=== PATIENT | male | born 1985 | race Caucasian/White ===

== ENCOUNTER 2020-10-24 19:48 | Emergency (ER) | payer MEDICAID ==
[~2020-10-24] VITALS: Ht 190.5 cm; Wt 68.2 kg
[~2020-10-24 19:48] MED LIST: NO HOME MEDS
[2020-10-24] MEDS ORDERED: TETanus/Pertussis (Acell)/Diphther VAC/PF (Tdap-Adult) 0.5ml syringe IMVAC ONE (20:10)
[2020-10-24] MEDS ORDERED: LIDOcaine 1% W/epiNEPHrine 1:200,000 10ml vial IJ ONE (20:10)
[2020-10-24] MEDS ORDERED: LIDOcaine 1% w/epiNEPHrine 1:200,000 30ml vial IJ ONE (20:15)
[2020-10-24 21:02] VITALS: BP 128/82
== END 2020-10-24 21:11 | disposition home or self-care (01) ==
LOC: ER 19:48
DX: S61.011A Laceration without foreign body of right thumb without damage to nail, initial encounter (principal); Z56.0 Unemployment, unspecified; W25.XXXA Contact with sharp glass, initial encounter; Y93.89 Activity, other specified; Y92.89 Other specified places as the place of occurrence of the external cause; Y99.8 Other external cause status
CPT/HCPCS: 12001; 90471; 90715; 99283